=== PATIENT | female | born 1945 | race Caucasian/White ===

== ENCOUNTER 2018-09-14 07:18 | Observation (INO) | payer MEDICARE, BC ==
[2018-09-14] MEDS ORDERED: Ondansetron PF 4 MG/2 ML Vial ONE ×2 (07:56→09:39)
[2018-09-14 08:06] LABS: ALT (SGPT) 8 U/L (8-55); AST (SGOT) 16 U/L (5-34); Albumin 3.8 g/dL (3.4-4.8); Alkaline Phosphatase 59 U/L (40-150); Anion Gap 16 mmol/L (10-20); BUN (Urea Nitrogen) 23 mg/dL (9.8-20.1); Bilirubin, Total 0.6 mg/dL (0.2-1.2); Calc. Creatinine Clearance 0 mL/min (70-130); Calcium 8.8 mg/dL (7.8-10.44); Carbon Dioxide 18 mmol/L (23-31); Chloride 109 mmol/L (98-107); Estimated GFR-MDRD 85; Globulin 2.8 g/dL (2.4-3.5); Glucose 131 mg/dL (83-110); Lipase 18 U/L (8-78); Potassium 4.3 mmol/L (3.5-5.1); Protein, Total 6.6 g/dL (6.0-8.3); Sodium 139 mmol/L (136-145)
[2018-09-14 08:09] LABS: #Basophils 0.1 thou/uL (0.0-0.2); #Eosinphils 0.1 thou/uL (0.0-0.7); #Lymphocytes 0.3 thou/uL (1.20-3.40); #Monocytes 0.3 thou/uL (0.11-0.59); #Neutrophils 5.7 thou/uL (1.40-6.50); %Basophils 0.8 % (0.0-1.0); %Eosinophils 0.8 % (0.0-10.0); %Lymphocytes 5.1 % (21.0-51.0); %Neutrophils 88.3 % (42.0-75.0); Hemoglobin 14.5 g/dL (12.0-16.0); Mean Corpuscular HGB CONC 33.3 g/dL (32.0-36.0); Mean Corpuscular Hemoglobin 28.5 pg (27.0-31.0); Mean Corpuscular Volume 85.7 fL (78.0-98.0); Mean Platelet Volume 10.2 fL (7.4-10.4); Platelet Count 133 thou/uL (130-400); RBC Distribution Width 11.8 % (11.5-14.5); Red Blood Cell (RBC) Count 5.08 mill/uL (4.20-5.40); White Blood Cell (WBC) Count 6.5 thou/uL (4.8-10.8)
[2018-09-14 08:34] LABS: Clarity Slightly Cloudy (Clear)
[2018-09-14 08:40] LABS: Bilirubin Negative (Negative); Blood, Urine Small (Negative); Glucose, Urine (Dipstick) Negative (Negative); Leukocyte Negative (Negative); Nitrite Negative (Negative); Protein, Urine (Dipstick) Negative (Neg-Trace); Specific Gravity, Urine 1.027 (1.005-1.030); Urobilinogen 0.2 mg/dL (0.2-1.0); pH, Urine 5.5 (5.0-9.0)
[2018-09-14 08:49] LABS: RBC/HPF 0-3 HPF (0-3); WBC/HPF 0-3 HPF (0-3)
[2018-09-14 08:50] LABS: Renal Epithelial 0-3 HPF (0-3); Transitional Epithelial 0-3 HPF (0-3)
[2018-09-14] MEDS ORDERED: Famotidine In NaCl 20 mg/50 ml Premix Bag ONE ×2 (09:23→09:27)
[2018-09-14 11:56] VITALS: BMI 24.0
[2018-09-14] MEDS ORDERED: Ondansetron ODT 4 MG TAB SL PRN (13:30)
[2018-09-14] MEDS ORDERED: Ondansetron PF 4 MG/2 ML Vial IVP PRN (13:30)
[2018-09-14] MEDS: Dextrose 5 %-0.45 % NaCl 1,000 ML IV SCH ×2 (13:43→22:21)
--- NOTE | 2018-09-14 14:15 | CT ---
CT ABDOMEN AND PELVIS WITH CONTRAST: Date: 09-14-18 Technique: Spiral CT of the abdomen and pelvis was done for evaluation of nausea, vomiting, and diarr hea. Axial slices were acquired after giving IV contrast, then coronal and sagittal reconstructions w ere done. FINDINGS: The lung bases show fibrotic change throughout, especially in the left lung. The liver, spleen, pancr eas, adrenal glands, kidneys, and abdominal aorta showed no acute findings. Arteriosclerotic change i s present in the aorta but there is no aneurysm. There has been a prior cholecystectomy. The major finding on the study is thickening of the proximal small bowel which have fluid within them . There is also some fluid in the stomach. No loops are greatly dilated. The distal small bowel takes on a bit more normal appearance, still being fluid filled buts womack not as thick. There is no thick ening of the colon. A few random diverticula were seen in the distal colon. No free air or free fluid was noted. CT of the pelvis was unremarkable in that there were no masses, fluid collections, or inflammatory ch anges. Degenerative changes are present in the spine. The patient has lumbar scoliosis, convex right. IMPRESSION: Thick-walled fluid-filled proximal small bowel. The findings are most in keeping with gastroenteritis , given the current appearance on CT. POS: [facility]
[2018-09-14] MEDS ORDERED: ASPIRIN PO PRN (14:51)
[2018-09-14] MEDS ORDERED: CAFFEINE PO PRN (14:51)
[2018-09-14] MEDS ORDERED: Non-Formulary Item 1 EACH (Acetaminophen With Codeine [Tylenol With Codeine #4] 1 TABLET) PO PRN (14:51)
[2018-09-14] MEDS: Acetaminophen 325 MG TAB PO PRN ×2 (16:12→21:27)
[2018-09-14] MEDS ORDERED: Atorvastatin Calcium 10 MG TAB PO SCH (21:00)
[2018-09-14] MEDS: Famotidine 20 MG TAB PO SCH (21:27)
--- NOTE | 2018-09-14 23:02 | HP ---
OBSERVATION HISTORY AND PHYSICAL CHIEF COMPLAINT: Vomiting and diarrhea. HISTORY OF PRESENT ILLNESS: Ms. Carter is a 73-year-old female, who is followed by Michelle Almaguer, who is a nurse practitioner in [place], [place], who presented today with acute onset of nausea with vomiting, diarrhea, and generalized abdominal cramping that started late last night. She has had some associated low-grade fever since her presentation here. In the emergency department, she was found to be acutely dehydrated on examination and had hemoccult-positive stool, and a CT scan that was consistent with gastroenteritis. Therefore, she has been admitted to the floor for IV fluid rehydration, serial abdominal exams with followup lab and imaging as needed as well as antiemetic therapy. The patient denies any known sick contacts, recent travel, or known bad food exposure prior to onset of symptoms. The patient reports that she has been in her usual state of health, although my history taking is limited by the patient's drowsiness since her transfer to the floor from the emergency room. PAST MEDICAL HISTORY: 1. Hypertension. 2. Hyperlipidemia. 3. COPD, not on chronic home O2. 4. Scoliosis. PAST SURGICAL HISTORY: Cataract surgery bilaterally and cholecystectomy. FAMILY HISTORY: Noncontributory to this case. ALLERGIES: NO KNOWN DRUG ALLERGIES. SOCIAL HISTORY: The patient denies smoking, alcohol, or illicit drug use at the present time. She lives with her son. MEDICATIONS: 1. Metoprolol 25 mg p.o. q.a.m. 2. Aspirin 81 mg p.o. daily. 3. Valsartan 80 mg p.o. daily. 4. Vitamin D3, 5000 units p.o. daily. 5. Atorvastatin 20 mg p.o. q.p.m. 6. Acetaminophen with Codeine No. 4 one p.o. q.6 hours p.r.n. pain. REVIEW OF SYSTEMS: A 10-system review could not be obtained reliably at this time secondary to sedation from medications that were given in the emergency room, but otherwise as per HPI and per review of the ED report by physician. PHYSICAL EXAMINATION: VITAL SIGNS: In the ER, blood pressure 109/60, heart rate 104, O2 saturation 94% on room air, respirations 18, and temperature 97.7. At my exam, temperature 100.2, heart rate 95, blood pressure 109/55, respirations 20, and O2 saturation 94% on room air. GENERAL: Thin female, in mild acute distress, drowsy appearing, but awakens with prompting and answers questions appropriately. She is oriented to person and place, but not time, stating that it is 1970, but then realizing that that is not correct. HEENT: Normocephalic, atraumatic. Pupils are equal, round, and reactive to light and accommodation, extraocular muscles are intact. Nares are patent without discharge. The patient's buccal mucosa is slightly dry in appearance with dentures in place. NECK: Supple without lymphadenopathy, thyromegaly, JVD, or bruits. HEART: Regular rate and rhythm without murmurs, clicks, rubs, or gallops. LUNGS: With diminished air entry throughout, without crackles or wheezes. ABDOMEN: Diminished bowel sounds in all 4 quadrants. Soft, nondistended, tenderness to palpation at the epigastrium. EXTREMITIES: No cyanosis, clubbing, or edema. NEUROLOGIC: Cranial nerves 2 through 12 grossly intact without focal deficits. LABORATORY DATA: White count 6500 with 88% neutrophils and 5% lymphocytes, hemoglobin 14.5, hematocrit 43.5, platelets 133. Sodium 139, potassium 4.3, chloride 109, bicarb 18, BUN 23, creatinine 0.68, glucose 131, lactic acid 1.9. Normal LFTs, lipase 18. Urinalysis significant for specific gravity of 1.027, small blood, 7 to 10 squamous epithelial cells, but otherwise negative. IMAGING STUDIES: CT scan of the abdomen and pelvis shows thick-walled fluid-filled proximal small bowel with findings most in keeping with gastroenteritis, fibrotic changes throughout the lung, especially in the left lung. Arteriosclerotic change in the aorta without aneurysm. Prior cholecystectomy noted. No greatly dilated loops of bowel. No colonic thickening. A few random diverticula seen in the distal colon. No free air or free fluid. ASSESSMENT AND PLAN: 1. Acute gastroenteritis. The patient currently with mild fever, so we will obtain blood cultures x2, send stool for culture, fecal wbc's, C diff, fecal lactoferrin. The patient was hemoccult-positive. The patient will be placed in a clear liquid diet with recommendations to advance as tolerated. We will give antiemetics p.r.n. and perform serial abdominal exams. We will repeat an acute abdominal series, CBC, comprehensive metabolic profile in the a.m. We will start Pepcid. Avoid sedating medications so that we can monitor her abdominal progress and avoid agents that can cause constipation. 2. Dehydration. The patient was given normal saline bolus in the emergency room and will be continued on maintenance fluids at this time and we will reassess in the morning. 3. Hypertension. The patient will be continued on her home regimen. 4. Hyperlipidemia. The patient will be continued on her statin. 5. Scoliosis. We will order Tylenol now for pain, but due to sedation, we will avoid any sedating pain medications. 6. Prophylaxis. Proton pump inhibitors will be given. If the patient have longer than a 2-day hospital stay, we will place SCDs or order pharmacologic prophylaxis for deep vein thrombosis. 7. Code status, full code at this time. Job ID: [id number]
[2018-09-15] MEDS: Acetaminophen 325 MG TAB PO PRN ×2 (03:17→09:42)
[2018-09-15 04:42] LABS: ALT (SGPT) 10 U/L (8-55); AST (SGOT) 21 U/L (5-34); Albumin 3.2 g/dL (3.4-4.8); Alkaline Phosphatase 46 U/L (40-150); Anion Gap 13 mmol/L (10-20); BUN (Urea Nitrogen) 13 mg/dL (9.8-20.1); Bilirubin, Total 0.6 mg/dL (0.2-1.2); Calc. Creatinine Clearance 73 mL/min (70-130); Calcium 8.1 mg/dL (7.8-10.44); Carbon Dioxide 20 mmol/L (23-31); Chloride 108 mmol/L (98-107); Estimated GFR-MDRD Greater than 90; Globulin 2.4 g/dL (2.4-3.5); Glucose 125 mg/dL (83-110); Potassium 3.7 mmol/L (3.5-5.1); Protein, Total 5.6 g/dL (6.0-8.3); Sodium 137 mmol/L (136-145)
[2018-09-15 04:48] LABS: #Basophils 0.1 thou/uL (0.0-0.2); #Lymphocytes 0.8 thou/uL (1.20-3.40); #Monocytes 0.4 thou/uL (0.11-0.59); #Neutrophils 2.9 thou/uL (1.40-6.50); %Basophils 1.5 % (0.0-1.0); %Eosinophils 0.2 % (0.0-10.0); %Neutrophils 70.4 % (42.0-75.0); Hemoglobin 11.9 g/dL (12.0-16.0); Mean Corpuscular HGB CONC 34.5 g/dL (32.0-36.0); Mean Corpuscular Hemoglobin 29.5 pg (27.0-31.0); Mean Corpuscular Volume 85.6 fL (78.0-98.0); Mean Platelet Volume 11.3 fL (7.4-10.4); Platelet Count 121 thou/uL (130-400); Red Blood Cell (RBC) Count 4.05 mill/uL (4.20-5.40); White Blood Cell (WBC) Count 4.2 thou/uL (4.8-10.8)
[2018-09-15] MEDS ORDERED: Valsartan 80 MG TAB PO SCH (09:00)
[2018-09-15] MEDS ORDERED: Aspirin 81 mg Enteric Coated Tablet PO SCH (09:00)
[2018-09-15] MEDS: Famotidine 20 MG TAB PO SCH (09:42)
[2018-09-15] MEDS: Dextrose 5 %-0.45 % NaCl 1,000 ML IV SCH (09:43)
--- NOTE | 2018-09-15 12:34 | RAD ---
ACUTE ABDOMEN SERIES: DATE: 09/15/2018. FINDINGS: The abdominal gas pattern is normal with no dilated loops of bowel. Various calcifications are mostl y vascular in nature. Lumbar scoliosis is present convex right. Overall, the appearance of the abdo men was very benign. The chest x-ray in the series shows hyperexpanded lungs with diffuse fibrotic changes throughout. Th is appears to be chronic. Although I do not have a prior chest x-ray to compare with, a 2016 thoraci c spine film suggested the lungs were affected at that time. The fibrosis was worst in the left lung base. There are no effusions. The heart is borderline in size. Arteriosclerosis is noted in the a cyndi. IMPRESSION: 1. No acute abdominal findings. 2. Chronic fibrotic changes throughout the lungs. POS: HOME
[2018-09-15 12:37] VITALS: BP 118/58; TEMP 98.9
--- NOTE | 2018-09-16 04:19 | DIS ---
DATE OF ADMISSION: 09/14/2018 DATE OF DISCHARGE: 09/15/2018 OBSERVATION DISCHARGE SUMMARY ADMISSION DIAGNOSES: 1. Acute gastroenteritis. 2. Dehydration. 3. Hypertension. 4. Hyperlipidemia. 5. Chronic obstructive pulmonary disease. 6. Scoliosis. DISCHARGE DIAGNOSES: 1. Acute gastroenteritis. 2. Dehydration. 3. Hypertension. 4. Hyperlipidemia. 5. Chronic obstructive pulmonary disease. 6. Scoliosis. HISTORY AND PHYSICAL: Please see dictated report from the date of admission. PROCEDURES: 1. The patient had a CT scan of the abdomen and pelvis with contrast from the date of admission that showed thick-walled, fluid-filled proximal small bowel. Findings are most in keeping with gastroenteritis. 2. Acute abdominal series from 09/15/2018 on the date of discharge showing normal bowel gas pattern. No free air or dilated bowel. Chronic fibrotic changes in the lungs. 3. C. diff antigen and toxin negative. 4. Stool culture pending. 5. Fecal lactoferrin and occult blood positive. 6. Blood culture x2 negative to date. 7. Urinalysis unremarkable. 8. CBC and chemistry profile unremarkable. HOSPITAL COURSE: Ms. Carter is a 73-year-old female with abrupt onset of nausea, vomiting, diarrhea, and abdominal cramping late on the evening prior to presentation. She was acutely dehydrated in the emergency room and was treated with antiemetics and IV fluids. She was transferred to the floor for further monitoring, and her condition improved throughout her stay here, and on the date of discharge, she is tolerating an oral diet well. She is currently awake and alert, and so is back to her back self and desires discharge home. She did have a very small amount of emesis this a.m. that she said was secondary to a tickle on her throat, that is her usual with a history of COPD. She has not had any increased cough above her baseline. She has an albuterol inhaler that she uses as needed at home for this. She denies any further nausea or vomiting. She still is having some small amounts of loose stools, but they are much less frequent than they were prior to presentation. The patient will be discharged home and I have advised her to make sure that her colon cancer screening is up to date with either a repeat fecal occult blood test in a few weeks after any area related to the acute diarrhea has had a chance to heal, or a colonoscopy if that is the route she prefers with her primary care physician. She will continue her regular diet, that is bland, and generous oral fluids and has been advised activity as tolerated. I have asked that she follow up with her primary care physician in less than 3 to 5 days. DISPOSITION: Discharge to home. CONDITION: Good. MEDICATIONS: 1. Metoprolol succinate 25 mg p.o. q.a.m. 2. Aspirin 81 mg p.o. daily. 3. Valsartan 80 mg p.o. daily. 4. Vitamin D3 5000 units p.o. daily. 5. Atorvastatin calcium 20 mg p.o. daily. 6. Tylenol with Codeine #4 one p.o. q.6 hours p.r.n. back pain. 7. Albuterol 2 puffs q.4 hours p.r.n. shortness of breath. 8. Ondansetron ODT 4 mg sublingual q.6 hours p.r.n. nausea and vomiting. FOLLOWUP: Should be with Lara Almaguer at the [facility] in approximately 3 to 5 days. Job ID: [id number]
== END 2018-09-15 14:14 | disposition home or self-care (01) ==
LOC: BURERS 07:18 → BURMED 09:15
PROVIDERS: ADMIT Family Medicine; ATTEND Family Medicine
DX: K52.9 Noninfective gastroenteritis and colitis, unspecified (principal); E86.0 Dehydration; I10 Essential (primary) hypertension; E78.5 Hyperlipidemia, unspecified; J44.9 Chronic obstructive pulmonary disease, unspecified; R19.5 Other fecal abnormalities; Z79.82 Long term (current) use of aspirin; M41.9 Scoliosis, unspecified; Z79.899 Other long term (current) drug therapy
CPT/HCPCS: 36415; 74022; 74177; 80053; 81003; 81015; 82274; 83605; 83630; 83690; 85025; 87040; 87045; 87046; 87324; 87449; 87899; 96361; 96365; 96375; 96376; G0378; J2405

== ENCOUNTER 2020-11-07 12:35 | Emergency (ER) | payer MEDICARE, BC ==
[2020-11-07] MEDS ORDERED: diphenhydrAMINE 50 MG/ML VIAL ONE (13:26)
[2020-11-07] MEDS ORDERED: Morphine 2 MG/ML VIAL ONE (13:26)
[2020-11-07] MEDS ORDERED: Magnesium 2 GM/50 ML BAG (IN WATER) ONE (13:27)
[2020-11-07] MEDS ORDERED: Albuterol Sulfate 2.5 mg/3 ml Neb ONE (13:27)
[2020-11-07] MEDS ORDERED: methylPREDNISolone Sod Succ/PF 125 MG/2 ML VIAL ONE (13:27)
[2020-11-07 13:29] LABS: #Basophils 0.1 thou/uL (0.0-0.2); #Lymphocytes 1.5 thou/uL (1.20-3.40); #Monocytes 0.3 thou/uL (0.11-0.59); #Neutrophils 8.6 thou/uL (1.40-6.50); %Basophils 0.6 % (0.0-1.0); %Eosinophils 0.1 % (0.0-10.0); %Monocytes 2.9 % (0.0-10.0); %Neutrophils 82.5 % (42.0-75.0); Hemoglobin 14.5 g/dL (12.0-16.0); Mean Corpuscular HGB CONC 32.3 g/dL (32.0-36.0); Mean Corpuscular Hemoglobin 29.4 pg (27.0-31.0); Platelet Count 163 thou/uL (130-400); RBC Distribution Width 12.9 % (11.5-14.5); Red Blood Cell (RBC) Count 4.92 mill/uL (4.20-5.40); White Blood Cell (WBC) Count 10.4 thou/uL (4.8-10.8)
[2020-11-07 13:41] LABS: ALT (SGPT) 15 U/L (8-55); AST (SGOT) 16 U/L (5-34); Albumin 4.1 g/dL (3.4-4.8); Alkaline Phosphatase 70 U/L (40-110); Anion Gap 20 mmol/L (10-20); BUN (Urea Nitrogen) 16 mg/dL (9.8-20.1); Bilirubin, Total 0.9 mg/dL (0.2-1.2); Calc. Creatinine Clearance 0 mL/min (70-130); Calcium 8.9 mg/dL (7.8-10.44); Carbon Dioxide 20 mmol/L (23-31); Chloride 104 mmol/L (98-107); Globulin 2.9 g/dL (2.4-3.5); Glucose 191 mg/dL (83-110); Lipase 33 U/L (8-78); Potassium 4.3 mmol/L (3.5-5.1); Sodium 140 mmol/L (136-145)
[2020-11-07 14:04] LABS: Large Platelets SLIGHT; MDiff Complete? YES; Mean Platelet Volume 14.1 fL (7.4-10.4); Platelet Morphology Comment Appears Adequate
[2020-11-07 14:46] LABS: Bilirubin Small (Negative); Blood, Urine Small (Negative); Clarity Clear (Clear); Glucose, Urine (Dipstick) Negative (Negative); Ketone, Urine 15 mg/dL (Negative); Leukocyte Negative (Negative); Nitrite Negative (Negative); Protein, Urine (Dipstick) 100 mg/dL (Neg-Trace); Urobilinogen 0.2 mg/dL (Less than 2)
[2020-11-07 14:53] LABS: Specific Gravity, Urine 1.022 (1.002-1.036)
[2020-11-07] MEDS ORDERED: cefTRIAXone\\ROCEPHIN 2 GM VIAL ONE (14:56)
[2020-11-07] MEDS ORDERED: Sodium Chloride 0.9% 100 ML ONE (14:56)
[2020-11-07] MEDS ORDERED: cefTRIAXone\\ROCEPHIN 1 GM VIAL ONE (14:58)
[2020-11-07 15:04] LABS: RBC/HPF 0-3 HPF (0-3); Renal Epithelial 0-3 HPF (None Seen); Squamous Epithelial 0-3 HPF (0-3); WBC/HPF 0-3 HPF (0-3)
[2020-11-07 15:05] LABS: Bacteria/HPF Rare-Few HPF (None Seen)
[2020-11-07] MEDS ORDERED: Iopamidol 370 76% 100 ML VIAL ONE (16:19)
[2020-11-07] MEDS ORDERED: Nitroglycerin 2% Ointment 1 INCH/1 GM Packet ONE (16:42)
[2020-11-07] MEDS ORDERED: Furosemide 40 MG/4 ML VIAL ONE (16:42)
[2020-11-07 17:09] LABS: Base Excess-Venous -3.9 mmol/L (-2.0 to 3.0); Bicarbonate (HCO3v) 24.1 mmol/L (22.0-28.0); CO2 Tension (PvCO2) 54.8 mmHg (42.0-51.0); Calcium, Ionized 1.06 mmol/L (1.15-1.33); Chloride 102 mmol/L (98-107); Hemoglobin - Calc 13.3 g/dL (12.0-16.0); Potassium 3.8 mmol/L (3.5-5.1); Sodium 138 mmol/L (138-145); T. Carbon Dioxide 25.7 mmol/L (22.0-28.0); vO2 Saturation-calc 99.2 % (60.0-85.0)
== END 2020-11-07 17:26 | disposition short-term general hospital (02) ==
LOC: BURERS 12:35
DX: A41.9 Sepsis, unspecified organism (principal); R65.20 Severe sepsis without septic shock; I11.0 Hypertensive heart disease with heart failure; I50.1 Left ventricular failure, unspecified; J44.1 Chronic obstructive pulmonary disease with (acute) exacerbation; E78.5 Hyperlipidemia, unspecified; Z79.899 Other long term (current) drug therapy
CPT/HCPCS: 71045; 71275; 82330; 82435; 82803; 83605; 83690; 83880; 84132; 84295; 84484; 85014; 85379; 87040; 93005; 94760; J2270; 36415; 51701; 80053; 81003; 81015; 84443; 85025; 96365; 96367; 96375; J0696; J1200; J1940; J2930; J3475; J3490; J7611; J7620; Q9967